=== PATIENT | male | born 1990 | race Caucasian/White ===

== ENCOUNTER 2025-03-15 21:06 | Emergency (ER) | payer SELFPAY ==
[2025-03-15 21:14] VITALS: BP 135/84; PULSE 101; RESP 16; TEMP 36.8; O2SAT 96; BMI 18.7
--- OUTSIDE RECORDS SUMMARY | 2025-03-15 23:39 | XMS_ITS | Encounter Summary ---
Author Organization [facility] Healthcare Syste m Address [address] [place] [id number] Care Team Providers Care Robotics Specialist Name Role Phone Eladio Hightower MD Primary Care Provider Unavailab Rhianna Bailon MD Primary Care Provider Unavail able Reason for Visit * Reason Comments Med Refill Encounter Details Date Type Department Care Team (Late st Contact Info) Description 03/03/2022 Refill [facility] Medical Group Internal and Residency Medicine - Medical [place], [address] [place] [id number] Eladio Hightower MD Social History Tobacco Use Types Packs/Day Years Used Date Smoking Tobacco: Never Assessed Sex and Gender Information Value Date Recorded Sex Assigned at Not on file Legal Sex Male 11:39 AM EDT Gender Identity Not on file Sexual Orientation Not on file documented as of this encounter Miscellaneous Notes * Telephone Encounter - Sim Hassan MD - 03/05/2022 8:11 AM EDT Refill done. Please schedule follow-up appointment with PCP in April. Thank you. documented in this encounter Plan of Treatment Not on file documented as of this encounter Visit Diagnoses Not on filedocumented in this encounter Care Teams Robotics Specialist Relationship Specialty Start Date End Date Eladio Hightower MD PCP - General 08/31/20 12/06/22 Rhianna Gracia MD PCP - General Internal Medicine 12/07/22 07/28/23 documented as of this encounter
--- OUTSIDE RECORDS SUMMARY | 2025-03-15 23:39 | XMS_ITS | Encounter Summary ---
Author Organization [facility] Healthcare Syste Address [address] [place] [address] Care Team Providers Care Merchandise Presentation Manager Name Role Phone Eladio Hightower MD Primary Care Provider Unavailab Rhianna Bailon MD Primary Care Provider Unavail able Reason for Visit * Reason Onset Date Comments Returning phone call 07/24/2022 Encounter Details Date Type Department Care Team (Late st Contact Info) Description 07/24/2022 Telephone [facility] Medical Group Internal and Residency Medicine - [address], [address] [place] [address] Eladio Hightower MD Returning phone call Social History Tobacco Use Types Packs/Day Years Used Date Smoking Tobacco: Never Assessed Sex and Gender Information Value Date Recorded Sex Assigned at Not on file Legal Sex Male 11:39 AM EDT Gender Identity Not on file Sexual Orientation Not on file documented as of this encounter Miscellaneous Notes * Telephone Encounter - Eladio Hightower MD - 07/25/2022 10:49 AM EST Please call patient to schedule an appointment * Telephone Encounter - Laila Lang - 07/24/2022 2:37 PM EST Who Called:n/a [employer] Party Caller: Best contact:[phone] Whose call is being returned: Details to clarify the request:Pt received 2 phone calls from the office, no VM or name was left. documented in this encounter Plan of Treatment Not on file documented as of this encounter Visit Diagnoses Not on filedocumented in this encounter Care Teams Merchandise Presentation Manager Relationship Specialty Start Date End Date Eladio Hightower MD PCP - General 08/31/20 12/06/22 Rhianna Gracia MD PCP - General Internal Medicine 12/07/22 07/28/23 documented as of this encounter
--- OUTSIDE RECORDS SUMMARY | 2025-03-15 23:39 | XMS_ITS | Clinical Summary ---
Author Organization [facility] Syste Address [address] [place] [address] Care Team Providers Care Labor Relations Worker Name Role Phone Unavailable Primary Care Provider Unavailabl e Medications glucose 4 gram chewable tablet Chew 4 g every 1 (one) hour. 1 Active DULoxetine (Cymbalta) [address] capsule Take 30 mg by mouth in the morning and at bedtime. 1 Active gabapentin (Neurontin) 600 mg tablet Take 1,200 mg by mouth in the morning, at noon, and at bedtime. 1 Active BD Ariana 2nd Gen Pen Needle 32 gauge x 5/32 needle INJECT INSULIN FOUR TIMES DAILY 400 each 3 2 Active Lantus Solostar U-100 Insulin 100 unit/mL (3 mL) pen ADMINISTER 20 UNITS UNDER THE SKIN DAILY 15 mL 3 2 Active insulin aspart (NovoLOG) 100 unit/mL (3 mL) pen INJECT UNDER THE SKIN THREE TIMES DAILY FOLLOWING SLIDING SCALE. MAXIMUM DAILY DOSE IS 50 UNITS 15 mL 3 2 Active Active Problems Problem Noted Date Diagnosed Date Type 1 diabetes mellitus 01/14/2022 Social History Tobacco Use Types Packs/Day Years Used Date Smoking Tobacco: Never Assessed Sex and Gender Information Value Date Recorded Sex Assigned at Not on file Legal Sex Male 11:39 AM EDT Gender Identity Not on file Sexual Orientation Not on file Last Filed Vital Signs Vital Sign Reading Time Taken Comments Blood Pressure 97/65 10/12/2021 1:35 PM EDT Pulse 86 10/12/2021 1:35 PM EDT Temperature - - Respiratory Rate 18 10/12/2021 1:35 PM EDT Oxygen Saturation - - Inhaled Oxygen Concentration - - Weight 55.8 kg (123 lb 0.3 oz) 08/31/2020 1:50 A M EDT Height 174 cm (5' 8.5 ) 10/12/2021 1:35 PM EDT Body Mass Index 17.61 08/30/2020 3:47 AM EDT Plan of Treatment Not on file
--- OUTSIDE RECORDS SUMMARY | 2025-03-15 23:39 | XMS_ITS | Clinical Summary ---
Author Organization [facility] Address [address] [place] [address] Care Team Providers Care Seed Mill Superintendent Name Role Phone Unavailable Primary Care Provider Unavailabl e Allergies No known active allergies Medications alpha lipoic acid 300 mg Cap Take by mouth. Active oxyCODONE (ROXICODONE) 15 mg immediate release tablet Take 10 mg by mouth every 4 (four) hours as needed. Q5HR 05/12/2020 Active tiZANidine (ZANAFLEX) 4 mg tablet Take 8 mg by mouth. 06/07/2020 Active traMADoL (ULTRAM) 50 mg tablet Take 50 mg by mouth. 05/12/2020 Active vial (NOVOLOG) 100 unit/ml insulin aspart Inject into the skin 3 (three) times daily before meals. Active gabapentin (NEURONTIN) 600 mg tablet Take 1,200 mg total (2 tablets) by mouth 3 (three) times daily. 540 tablet 3 01/29/2021 Active DULoxetine (CYMBALTA) 30 mg capsule Take 30 mg by mouth 3 (three) times daily before meals. Active Active Problems Problem Noted Date Diagnosed Date Diabetic polyneuropathy asso ciated with type 1 diabetes mellitus 06/21/2020 Chronic peripheral neuropathic pain 06/21/2020 Family History Medical History Relation Name Comments Heart disease Father No Known Problems Mother Relation Name Status Comments Father Alive Mother Alive Social History Tobacco Use Types Packs/Day Years Used Date Smoking Tobacco: Former Smokeless Tobacco: Never Alcohol Use Standard Drinks/Week Comments Yes 0 (1 standard drink = 0.6 oz pur e alcohol) One drink per week Sex and Gender Information Value Date Recorded Sex Assigned at Not on file Legal Sex Male 4:33 PM EST Gender Identity Not on file Sexual Orientation Not on file Plan of Treatment Health Maintenance Due Date Last Done Comments Depression Screening & Follow Up 1991 IMM SERIES: MMR Vaccines (1 of 1 - Standard series) 09/20/1992 Social Drivers of Health Assessment 09/20/1992 IMM SERIES: Varicella Vaccin es (1 of 2 - 13+ 2-dose series) 09/20/2004 HEPATITIS C SCREENING 09/20/2009 Weight Management (Adult) 09/20/2009 IMM SERIES: DTAP/TDAP/TD/DTP (1 - Tdap) 09/20/2010 IMM SERIES: Hepatitis B Vacc ine (1 of 3 - 19+ 3-dose series) 09/20/2010 IMM SERIES: HPV Vaccines (1 - 3-dose SCDM series) 09/20/2018 Influenza Vaccine (#1) 2025 03/06/2017 IMM SERIES: SARS-COV2 and CO VID-19 vaccines (2 - 2024- season) 2025 09/04/2020 IMM SERIES: Zoster (1 of 2) 09/20/2041 IMM SERIES: HIB Vaccines Aged Out No longer eligible based on patient's age to complete this topic IMM SERIES: Hepatitis A Vaccine Aged Out No longer eligible based on patient's age to complete this topic IMM SERIES: Meningococcal ACWY Aged Out No longer eligible based on patient's age to complete this topic IMM SERIES: Meningococcal B Vaccines Aged Out No longer eligible b ased on patient's age to complete this topic IMM SERIES: Polio Vaccines Aged Out N o longer eligible based on patient's age to complete this topic IMM SERIES: Rotavirus Vaccines Aged Out No longer eligible based on patient's age to complete this topic Pneumococcal (0-5 years) and At-Risk Patients (6 to 64 Years) Aged Out No long er eligible based on patient's age to complete this topic Insurance [facility]
--- OUTSIDE RECORDS SUMMARY | 2025-03-15 23:39 | XMS_ITS | Encounter Summary ---
Author Organization [facility] Healthcare Syste Address [address] [place] [address] Care Team Providers Care Corrections Cadet Name Role Phone Eladio Hightower MD Primary Care Provider Unavailab Rhianna Bailon MD Primary Care Provider Unavail able Reason for Visit * Reason Comments Med Refill Encounter Details Date Type Department Care Team (Late st Contact Info) Description 03/11/2022 Refill [facility] Medical Group Internal and Residency Medicine - Medical [place], [address] [place] [id number] Eladio Hightower MD Social History Tobacco Use Types Packs/Day Years Used Date Smoking Tobacco: Never Assessed Sex and Gender Information Value Date Recorded Sex Assigned at Not on file Legal Sex Male 11:39 AM EDT Gender Identity Not on file Sexual Orientation Not on file documented as of this encounter Plan of Treatment Not on file documented as of this encounter Visit Diagnoses Not on filedocumented in this encounter Care Teams Corrections Cadet Relationship Specialty Start Date End Date Eladio Hightower MD PCP - General 08/31/20 12/06/22 Rhianna Gracia MD PCP - General Internal Medicine 12/07/22 07/28/23 documented as of this encounter
--- OUTSIDE RECORDS SUMMARY | 2025-03-15 23:40 | XMS_ITS | Clinical Summary ---
Author Organization [facility] Address [address] [place] [id number] Phone Care Team Providers Care Privacy Attorney Name Role Phone Zena Walter MD Primary Care Provider Allergies No known active allergies Medications insulin lispro (ADMELOG, HUMALOG) 100 unit/mL injection pen Blood glucose (mg/dL): Insulin dose Glucose 70-150: 0 unit. Glucose 151-200: 2 units. Glucose 201-250: 4 units. Glucose 251-300: 6 units. Glucose 301-350: 8 units. Glucose 351-400: 10 units. Glucose >400: 12 units and call doctor. 6 mL 1 4 Active insulin glargine 100 unit/mL (3 mL) InPn injection pen Inject 12 Units under the skin nightly at bedtime. 6 mL 1 4 Active insulin pen needles, disposable, 32 gauge x 1/4 Ndle 1 each by Miscellaneous route as needed. 100 each 4 Active amoxicillin-cl avulanate (AUGMENTIN) 875-125 mg per tablet Take 1 tablet (875 mg of amoxicillin total) by mouth 2 (two) times a day. 14 tablet 5 Active Active Problems Problem Noted Date Diagnosed Date DKA, type 1, not at goal 12/02/2023 Assessment & Plan (12/02/2023 7:34 PM EDT): Patient presented urinary frequency, increased thirst, and persistent vomiting in the setting of running out of his Lantus past 4 days. In DKA. He is a type I diabetic he has been admitted for DKA previously at other hospitals. no other infectious signs or symptoms or ischemic concerns no rashes or lesions. Presented with glucose 613 bicarb 8 VBG pH 7.0 / Given 2 L IV fluid bolus insulin bolus and insulin infusion started in the ED -- Admit to ICU -- Give additional 1 L LR bolus -- Start maintenance IV fluid LR at 250 an hour add D5 as indicated by [id number] (<200) -- Continue insulin infusion -- Check BMP mag Phos every 4 hours aggressively replete potassium Social History Tobacco Use Types Packs/Day Years Used Date Smoking Tobacco: Every Day Cigarettes Smokeless Tobacco: Never Tobacco Cessation:Ready to Q uit: Not Asked; Counseling Given: Not Answered Alcohol Use Standard Drinks/Week Comments Yes 35 (1 standard drink = 0.6 oz pu re alcohol) Education Answer Date Recorded Are you interested in more education? Not on kathy e 07/27/2023 Are you concerned about learning? Not on file 07/27/2023 No 07/27/2023 No 07/27/2023 Food Answer Date Recorded Within the past 6 months we worried whether our food would run out before we got money to buy more. Never True 10/17/2024 Within the past 6 months the food we bought just didn't last and we didn't have enough money to get more. Never True Residential Stability Answer Date Recor ded What is your housing situation today? I have serjio sing 10/17/2024 How many times have you move d in the past 12 months? Zero (I did not move) 10/17/2024 Paying for Meds Answer Date Recorded Do you have trouble paying for medicines? No 10/17/2024 Paying Utility Bills Answer Date Record ed Do you have trouble paying your heating or elect ricity bill? No 10/17/2024 Transportation Answer Date Recorded Has the lack of transportati on kept you from medical appointments or from getting medications? No 10/17/2024 Digital Access Answer Date Recorded No 10/17/2024 Yes 10/17/2024 Do you have reliable internet access at home? Ye s 10/17/2024 Do you have a device (e.g., phone, tablet, computer) with a working camera? Yes 10/17/2024 Intimate Partner Violence Answer Date R ecorded Are you denied basic needs s uch as food, clothing, or medical care? No 10/17/2024 In the past 12 months have y ou been in a relationship with a person who hurts, threatens, or tries to control you? No 10/17/2024 Are you denied basic needs s uch as food, clothing, or medical care? No 10/17/2024 In the past 12 months have y ou been in a relationship with a person who hurts, threatens, or tries to control you? No 10/17/2024 Sex and Gender Information Value Date Recorded Sex Assigned at Male 10/17/2024 10:56 AM EDT Legal Sex Male 4:15 PM EST Gender Identity Male 10/17/2024 10:56 AM EDT Sexual Orientation Not on file Last Filed Vital Signs Vital Sign Reading Time Taken Comments Blood Pressure 132/83 10/17/2024 3:37 PM EDT Pulse 85 10/17/2024 3:37 PM EDT Temperature 37 C (98.6 F) 10/17/2024 3:37 PM EDT Respiratory Rate 16 10/17/2024 3:37 PM EDT Oxygen Saturation 98% 10/17/2024 3:37 PM EDT Inhaled Oxygen Concentration - - Weight 58.1 kg (128 lb) 10/17/2024 10:49 AM EDT Height 177.8 cm (5' 10 ) 10/17/2024 10:49 AM EDT Body Mass Index 18.37 10/17/2024 10:49 AM EDT Plan of Treatment Health Maintenance Due Date Last Done Comments Adult Td,Tdap Booster 1991 BLOOD PRESSURE 1991 HEMOGLOBIN A1C 1991 DEPRESSION SCREENING 2003 SMOKING Hx and SMOKELESS TOB ACCO SCREENING 09/20/2004 HEPATITIS C SCREENING 09/20/2009 HIV ONE-TIME SCREENING (18-6 5 YEARS) 09/20/2009 LIPID PANEL 09/20/2009 PNEUMOCOCCAL VACCINES (0-49 years) (1 of 2 - PCV) 09/20/2010 DIABETIC EYE EXAM 12/03/2023 URINE MICROALBUMIN/CREATININE RATIO 12/03/2023 INFLUENZA VACCINE (#1) 2025 COVID-19 VACCINE (1 - 2024-2 6 season) 2025 HEPATITIS A VACCINES Aged Out No long er eligible based on patient's age to complete this topic HIB VACCINES Aged Out No longer eligi ble based on patient's age to complete this topic MENINGOCOCCAL VACCINES (ACWY) Aged Out No longer eligible based on patient's age to complete this topic MENINGOCOCCAL VACCINES (B) Aged Out N o longer eligible based on patient's age to complete this topic Medical Devices Not on file Advance Directives For more information, please contact: [phone] (9AM - 5PM [facility], Friday-Friday) * Full Code (Latest Code Status on File) Date Activated Date Inactivated Comments 12/03/2023 2:54 AM Question Answer Comments Code Status Confirmed With: Patient * Full Code Date Activated Date Inactivated Comments 12/02/2023 9:56 PM 12/03/2023 2:54 AM Question Answer Comments Code Status Confirmed With: Patient Code Status Communicated To: Inpatient Attending Care Teams Privacy Attorney Relationship Specialty Start Date End Date Zena Walter MD [address] [place] [id number] PCP - General Internal Medicine 12/03/23 Additional Source Comments The information contained in this document represents components of the legal health record. It is not the complete legal health record.[facility]
== END 2025-03-15 23:39 | disposition left against medical advice (07) ==
PROVIDERS: Emergency Provider Emergency Medicine
DX: M79.641 Pain in right hand (principal)
CPT/HCPCS: 99281